=== PATIENT | male | born 1955 | race Caucasian/White ===

== ENCOUNTER → 2018-12-27 12:17 | Outpatient (CLI) | payer OTHER, MEDICAID, SELFPAY ==
--- NOTE | 2018-12-27 | DI.US.S_ITS ---
PROCEDURE: US EXTREMELY NONVASC UPPER RT INDICATIONS: MASS OF SKIN OF RIGHT SHOULDER TECHNIQUE: Real-time scanning was performed of the right shoulder soft tissues, with image documentation. COMPARISON: None. FINDINGS: There is a 3.2 x 0.4 x 1.3 cm isoechoic lesion that corresponds to the palpable mass. No calcifications are associated with the lesion. No edema noted adjacent to the lesion. IMPRESSION: Nonspecific 3.2 x 0.4 x 1.3 cm solid-appearing mass corresponds to clinically palpable lesion in the right supraclavicular region. Decision to biopsy should be based on clinical assessment Dictated by: Altagracia Irvin MD, PhD on 12/27/2018 at 14:38 Approved by: Altagracia Irvin MD, PhD on 12/27/2018 at 14:46
== END ==
PROVIDERS: Family Provider Family Medicine; PCP Family Medicine; Visit Provider Nurse Practitioner Family
DX: R22.31 Localized swelling, mass and lump, right upper limb (principal)
CPT/HCPCS: 76882

== ENCOUNTER → 2024-03-03 13:36 | Outpatient (CLI) | payer MEDICARE, SELFPAY ==
--- NOTE | 2024-03-03 13:44 | DI.ECHO.S_ITS ---
[facility]---------+ [facility] : : [address] : : [place] : : [id number] : : Phone: [phone] Echocardiogram Report + + :Name: JONG STONE Study Date: 03/03/2024 Height: 71 in : :Hospital ReadingLocation: Weight: 215 lb : : Gender: Male BSA: 2.2 m2 : :: 1955 Age: 68 yrs BP: 136/69 mmHg: :Reason For Study: ESSENTIAL PRIMARY HYPERTENSION : :Ordering Physician: JULIETA, : :KINA Andrade Performed By: Kj Bustamante : :Referring: KINA RENDON : + + Interpretation Summary The ejection fraction is estimated to be 60-65%. The right ventricle is mild to moderately dilated. The right ventricular systolic function is normal. There is mild mitral regurgitation. There is trace tricuspid regurgitation. The right ventricular systolic pressure is estimated to be at least 40 mmHg based on an estimated right atrial pressure of 3 mm Hg. Procedure: A two-dimensional transthoracic echocardiogram with color flow and Doppler was performed. The study quality was technically adequate. There is no prior echocardiogram noted for this patient. The patient was in sinus rhythm with heart rates between 60-70 bpm during the exam. Left Ventricle: The left ventricle is normal in size and wall thickness. The ejection fraction is estimated to be 60-65%. Left ventricular wall motion is normal. Right Ventricle: The right ventricle is mild to moderately dilated. The right ventricular systolic function is normal. Atria: The left atrium is mildly dilated. The right atrium is mildly dilated. The interatrial septum grossly appears intact with no obvious evidence for an atrial septal defect. Mitral Valve: The mitral valve is normal in structure and function. There is no mitral valve stenosis. There is mild mitral regurgitation. Aortic Valve: The aortic valve is trileaflet. There is no aortic valve stenosis. No aortic regurgitation is present. Tricuspid Valve: The tricuspid valve is normal in structure and function. There is no tricuspid stenosis. There is trace tricuspid regurgitation. The right ventricular systolic pressure is estimated to be at least 40 mmHg based on an estimated right atrial pressure of 3 mm Hg. Pulmonic Valve: The pulmonic valve is normal in structure and function. There is no pulmonic valvular stenosis. There is mild pulmonic regurgitation. Great Vessels: The aortic root is normal size. The dimensions of the ascending aorta are normal. The IVC is of normal diameter and collapses greater than 50% with a sniff. This suggests a low right atrial pressure of 3 mm Hg. Pericardium/ Pleura There is no pericardial effusion. There is no pleural effusion. MMode/2D Measurements & Calculations LVIDd: 5.0 cm LVOT diam: 2.6 cm LVIDs: 2.3 cm Ao root diam: 3.3 cm FS: 53.2 % asc Aorta Diam: 3.3 cm IVSd: 1.0 cm Ao Arch Diam (Prox Trans): 2.7 cm LVPWd: 0.88 cm LV campuzano. diameter/BSA (cm/m^2): 2.3 LV sys. diameter/BSA (cm/m^2): 1.1 LA A2 area: 22.2 cm2 RA long axis: 5.1 cm LA A4 area: 26.1 cm2 RA area: 19.6 cm2 LA length (vol): 6.2 cm RA vol: 64.9 ml LA vol: 79.4 ml RA : 29.9 ml/m2 LA vol index: 36.5 ml/m2 IVC diam: 1.9 cm RVD1 (basal): 5.0 cm RVD2 (mid): 5.0 cm TAPSE: 2.5 cm Doppler Measurements & Calculations Ao V2 max: 303.7 cm/sec LVOT Max Ricardo: 194.4 cm/sec Ao V2 mean: 192.3 cm/sec LV V1 max P.1 mmHg Ao max P.9 mmHg LV V1 VTI: 46.0 cm Ao mean P.4 mmHg MORELIA(I,D): 4.0 cm2 Ao V2 VTI: 60.7 cm MORELIA(V,D): 3.4 cm2 sev ratio: 0.76 MORELIA indexed to BSA (cm^2/m^2): 1.8 MV E max ricardo: 78.9 cm/sec TR max ricardo: 303.9 cm/sec MV A max ricardo: 75.2 cm/sec TR max P.2 mmHg MV E/A: 1.0 PA V2 max: 141.5 cm/sec Med Peak E' Ricardo: 6.7 cm/sec PA V2 mean: 101.9 cm/sec E/E' med: 11.8 PA mean P.5 mmHg Lat Peak E' Ricardo: 9.7 cm/sec PA pr(Accel): 32.8 mmHg E/E' lat: 8.1 E/e' average: 10.0 MV dec time: 0.20 sec SVLVOT): 243.4 ml Reading Physician:02:57 PM
== END ==
PROVIDERS: Family Provider Family Medicine; PCP Family Medicine; Referring Provider Family Medicine; Visit Provider Family Medicine
DX: I34.0 Nonrheumatic mitral (valve) insufficiency (principal); I37.1 Nonrheumatic pulmonary valve insufficiency; Z86.79 Personal history of other diseases of the circulatory system; I10 Essential (primary) hypertension
CPT/HCPCS: 93306